=== PATIENT | female | born 1960 | race Caucasian/White ===

== ENCOUNTER 2023-06-01 13:42 | Inpatient (IN) | payer OTHER ==
[~2023-06-01] VITALS: Ht 160 cm; Wt 54.3 kg
[2023-06-01] MEDS ORDERED: MORPHINE 4 MG/ML 1ML VIAL IV ONE ×3 (14:20→22:15)
[2023-06-01] MEDS ORDERED: ONDANSETRON 4MG 2ML VIAL IV ONE (14:20)
[2023-06-01] MEDS ORDERED: fentaNYL 100 MCG/2 ML INJECTION IV ONE (16:55)
[2023-06-01] MEDS ORDERED: CYCLOBENZAPRINE 10MG TABLET PO ONE (18:05)
[2023-06-01] MEDS ORDERED: diazePAM 10MG/2ML SYRINGE IV ONE (19:00)
[2023-06-01] MEDS ORDERED: TRIA1CR80 TOP (20:44)
[2023-06-01] MEDS ORDERED: ADAP0.1C TOP (20:44)
[2023-06-01] MEDS ORDERED: CELE1CAP9 PO (20:44)
[2023-06-01] MEDS ORDERED: REST0.05 OU (20:44)
[2023-06-01] MEDS ORDERED: HOME MED LIST COMPLETE! XX SCH (20:45)
[2023-06-01] MEDS ORDERED: ONDANSETRON 4MG ORAL DISINTEGRATING TAB PO PRN (22:40)
[2023-06-01 23:49] VITALS: BP 150/85; TEMP 97.7; O2SAT 96
[2023-06-01] MEDS: NORCO, ANEXSIA 5/325MG TABLET (HYDROcodone/ACETAMINOPHEN) PO PRN (23:57)
[2023-06-02] MEDS: traMADol 50 MG TAB PO PRN ×2 (02:17→10:00)
[2023-06-02 06:00] VITALS: BP 134/85; TEMP 97.9; O2SAT 95
[2023-06-02] MEDS: NORCO, ANEXSIA 5/325MG TABLET (HYDROcodone/ACETAMINOPHEN) PO PRN ×2 (06:25→12:20)
[2023-06-02 07:02] LABS: BASO % 0.4 % (0.0-1.0); EOS % 0.6 % (0.0-3.0); HEMATOCRIT 35.1 % (36.0-47.0); HEMOGLOBIN 11.4 g/dl (12.0-15.5); LYMPH # 1.8 10^3/uL (1.5-5.0); LYMPH % 26.8 % (24.0-44.0); MEAN CORPUSCULAR HEMOGLOBIN 30.8 pg (27.0-33.0); MEAN CORPUSCULAR HGB CONC 32.5 g/dl (32.0-36.5); MEAN CORPUSCULAR VOLUME 94.9 fl (80.0-96.0); MONO # 0.6 10^3/uL (0.0-0.8); MONO % 8.2 % (2.0-8.0); NEUTROPHILS # 4.3 10^3/uL (1.5-8.5); NEUTROPHILS % 63.7 % (36.0-66.0); PLATELET COUNT, AUTOMATED 206 10^3/uL (150-450); WHITE BLOOD COUNT 6.8 10^3/uL (4.0-10.0)
[2023-06-02 07:23] LABS: ALBUMIN 3.5 G/DL (3.2-5.2); ALKALINE PHOSPHATASE 59 U/L (46-116); ALT/SGPT < 9 U/L (7.0-40); AST/SGOT 20 U/L (<34); BILIRUBIN,TOTAL 0.6 MG/DL (0.3-1.2); BLOOD UREA NITROGEN 15 MG/DL (9-23); CALCIUM LEVEL 8.7 MG/DL (8.3-10.6); CARBON DIOXIDE LEVEL 25 MMOL/L (20-31); CHLORIDE LEVEL 106 MMOL/L (98-107); CREATININE FOR GFR 0.57 MG/DL (0.55-1.30); GLOMERULAR FILTRATION RATE > 60.0 (>45); GLUCOSE, FASTING 98 MG/DL (74-106); POTASSIUM SERUM 3.6 MMOL/L (3.5-5.1); SODIUM LEVEL 139 MMOL/L (136-145); TOTAL PROTEIN 5.8 G/DL (5.7-8.2)
[2023-06-02] MEDS: HEPARIN SOD (PORCINE) 5000UNITS/ML 1ML VIAL/SYRINGE SC SCH ×3 (07:27→22:23)
[2023-06-02] MEDS ORDERED: MORPHINE 4 MG/ML 1ML VIAL IV PRN (12:20)
[2023-06-02 14:00] VITALS: BP 139/79; TEMP 97.9; O2SAT 98
[2023-06-02] MEDS ORDERED: fentaNYL 100 MCG/2 ML INJECTION IV PRN (15:00)
[2023-06-02] MEDS ORDERED: EPINEPHrine INJ 1 MG/ML 1ML AMP PN ONE (15:00)
[2023-06-02] MEDS ORDERED: ROPIvacaine 0.5% 30ML VIAL PN ONE (15:00)
[2023-06-02] MEDS ORDERED: LIDOCAINE 1% SDV 5ML VIAL PN ONE (15:00)
[2023-06-02] MEDS ORDERED: MIDAZOLAM INJ 2MG/2ML VIAL IV PRN (15:00)
[2023-06-02] MEDS ORDERED: HYDROMORPHONE HCL 0.5 MG/ 0.5 ML SYRINGE IV PRN (16:45)
[2023-06-02] MEDS ORDERED: oxyCODONE 5MG TAB PO PRN (17:00)
[2023-06-02] MEDS ORDERED: BACL10TA2 PO (17:16)
[2023-06-02] MEDS ORDERED: DICL1PAT6 TOP (17:16)
[2023-06-02] MEDS ORDERED: ACET-683 PO (17:16)
[2023-06-02] MEDS ORDERED: LIDO5TD TD (17:16)
[2023-06-02] MEDS ORDERED: OXYC-517 PO (17:16)
[2023-06-02] MEDS ORDERED: IBUP-1114 PO (17:18)
[2023-06-02] MEDS: ACETAMINOPHEN 500 MG TAB PO SCH (17:47)
[2023-06-02] MEDS: BACLOFEN 10 MG TAB PO SCH ×2 (17:47→20:23)
[2023-06-02] MEDS: KETOROLAC 30 MG/ML 1ML VIAL IV SCH (17:48)
[2023-06-02] MEDS: LIDOCAINE 5% (LIDODERM) PATCH TD SCH (17:52)
[2023-06-02] MEDS ORDERED: KETOROLAC 30 MG/ML 1ML VIAL IV PRN (18:00)
[2023-06-02] MEDS ORDERED: KETOROLAC 30 MG/ML 1ML VIAL IV SCH (18:00)
[2023-06-02] MEDS: HYDROMORPHONE HCL 0.5 MG/ 0.5 ML SYRINGE IV PRN (20:24)
[2023-06-02] MEDS: DICLOFENAC EPOLAMINE 1.3% PATCH TOP SCH (20:24)
[2023-06-02 21:41] VITALS: BP 127/75; TEMP 97.9; O2SAT 98
[2023-06-03] MEDS: ACETAMINOPHEN 500 MG TAB PO SCH ×2 (00:10→05:40)
[2023-06-03] MEDS: KETOROLAC 30 MG/ML 1ML VIAL IV SCH ×2 (00:11→05:41)
[2023-06-03 05:48] VITALS: BP 130/82; TEMP 97.9; O2SAT 98
[2023-06-03] MEDS: HEPARIN SOD (PORCINE) 5000UNITS/ML 1ML VIAL/SYRINGE SC SCH (06:00)
[2023-06-03] MEDS: BACLOFEN 10 MG TAB PO SCH ×2 (08:38→10:22)
[2023-06-03] MEDS: LIDOCAINE 5% (LIDODERM) PATCH TD SCH (08:40)
[2023-06-03] MEDS: DICLOFENAC EPOLAMINE 1.3% PATCH TOP SCH (08:40)
[2023-06-03] MEDS: HYDROMORPHONE HCL 0.5 MG/ 0.5 ML SYRINGE IV PRN (08:48)
[2023-06-03] MEDS ORDERED: DILA2TAB6 PO ×4 (09:39→09:58)
[2023-06-03] MEDS ORDERED: IBUP-1114 PO ×2 (09:42→09:58)
[2023-06-03] MEDS ORDERED: DICL1PAT6 TOP ×2 (09:42→09:58)
[2023-06-03] MEDS ORDERED: BACL10TA2 PO ×2 (09:42→09:58)
[2023-06-03] MEDS ORDERED: ACET-683 PO ×2 (09:42→09:58)
[2023-06-03] MEDS ORDERED: LIDO5TD TD ×2 (09:42→09:58)
== END 2023-06-03 10:35 | disposition home or self-care (01) | DRG 342 ==
LOC: M ED 13:42 → M ED INP 22:37 → ENRESERV 23:14 → M MS5PR 23:35 → M ED INP 06-02 00:11 → M MS5PR 06-02 00:12
PROVIDERS: ADMIT Internal Medicine; ATTEND Student in an Organized Health Care Education/Training Program
DX: S42.252A Displaced fracture of greater tuberosity of left humerus, initial encounter for closed fracture (principal); S42.212A Unspecified displaced fracture of surgical neck of left humerus, initial encounter for closed fracture; W18.09XA Striking against other object with subsequent fall, initial encounter; Y92.9 Unspecified place or not applicable; Y93.89 Activity, other specified; Y99.8 Other external cause status; Z96.643 Presence of artificial hip joint, bilateral; Z79.899 Other long term (current) drug therapy; Z88.8 Allergy status to other drugs, medicaments and biological substances